=== PATIENT | female | born 1990 | race Caucasian/White ===

== ENCOUNTER 2016-10-18 11:49 | Emergency (ER) | payer BC ==
[2016-10-18] MEDS ORDERED: IBUPROFEN 400 MG TABLET PO ONE (12:10)
[2016-10-18 12:13] LABS: URINE APPEARANCE CLEAR; URINE BILIRUBIN NEGATIVE (NEGATIVE); URINE BLOOD MODERATE (NEGATIVE); URINE COLOR YELLOW; URINE GLUCOSE (UA) NEGATIVE (NEGATIVE); URINE KETONE NEGATIVE (NEGATIVE); URINE LEUKOCYTE ESTERASE NEGATIVE (NEGATIVE); URINE NITRITE NEGATIVE (NEGATIVE); URINE PROTEIN NEGATIVE (NEGATIVE); URINE UROBILINOGEN 0.2 E.U./dL (0.20 - 1.00)
--- NOTE | 2016-10-18 12:16 | Emergency Department Record ---
History of Present Illness - General Chief complaint: Flank Pain Stated complaint: RIGHT FLANK PAIN Time Seen by Provider: 10/18/16 12:05 Source: Patient Mode of Arrival: Ambulatory Limitations: No limitations - History of Present Illness Initial comments: The patient is here due to a 10 day hx of on intermittent R flank pain. The pain is off and on and is sharp at times. She denies any nausea, vomiting, abdominal pain, dysuria or hematuria. The patient has no hx of trauma or kidney stones. She was seen in the and sent over to the ER for hematuria. Presently the patient has no pain or discomfort. The patient has had very mild menstrual spotting recently also. MD Complaint: Other Onset/Timin -: Days(s) Radiation: R flank Severity scale (1-10): 4 Quality: Other Consistency: Intermittent Improves with: Other Worsens with: Movement Patient : No LMP Date: 09/27/16 Gestational Age (wks) based on LMP: 3 - Related Data Sexually active: Yes Home Medications Medication Instructions Recorded Confirmed Last Taken Norethindrone-E.estradiol-Iron 84 Days 10/18/16 10/18/16 [[place] 1-20 Tablet] Previous Rx's Medication Instructions Recorded Naproxen [Naprosyn] 250 mg PO BID #14 tablet 10/18/16 Allergies Allergy/AdvReac Type Severity Reaction Status Date / Time No Known Allergies Allergy PT UNSURE Verified 10/18/16 11:51 OF REACTION Travel Screening - Travel/Exposure Within Last 30 Days Have you traveled within the last 30 days?: No - Travel/Exposure Within Last Year Have you traveled outside the [place] in the last year?: No - Additonal Travel Details Have you been exposed to anyone with a communicable illness?: No - Travel Symptoms Symptom Screening: None Review of Systems Constitutional: Denies: Chills, Fever Eyes: Denies: Eye discharge ENT: Denies: Congestion Respiratory: Denies: Cough, Dyspnea Past Medical History - SOCIAL HISTORY Smoking Status: Never smoker Alcohol Use: Occassional Drug Use Detail:: Marijuana - RESPIRATORY Hx Respiratory Disorders: No - CARDIOVASCULAR Hx Cardio Disorders: No - NEURO Hx Neuro Disorders: No - GI Hx GI Disorders: No - Hx Genitourinary Disorders: No - ENDOCRINE Hx Endocrine Disorders: No - MUSCULOSKELETAL Hx Musculoskeletal Disorders: No - PSYCH Hx Psych Problems: No - HEMATOLOGY/ONCOLOGY Hx Hematology/Oncology Disorders: No Family Medical History Any Significant Family History?: No Physical Exam - General General Appearance: Alert, Oriented x3, Cooperative, No acute distress - Head Head exam: Atraumatic, Normocephalic, Normal inspection - Eye Eye exam: Normal appearance, PERRL - Neck Neck exam: Normal inspection, Full ROM. negative: Tenderness - Respiratory Respiratory exam: Normal lung sounds bilaterally. negative: Respiratory distress - Cardiovascular Cardiovascular Exam: Regular rate, Normal rhythm, Normal heart sounds - GI/Abdominal GI/Abdominal exam: Soft, Normal bowel sounds. negative: Distended, Rebound, Rigid, Tenderness - Extremities Extremities exam: Normal inspection, Full ROM, Normal capillary refill. negative: Tenderness - Back Back exam: Reports: Paraspinal tenderness (There is very reproducible tenderness to palpation over the R inferior paraspinal lumbar area.). Denies: CVA tenderness (R), CVA tenderness (L), Muscle spasm, Vertebral tenderness - Neurological Neurological exam: Alert, Normal gait. negative: Abnormal gait, Motor sensory deficit Course Vital Signs 10/18/16 11:52 Temperature 97.4 F L Pulse Rate 64 Respiratory 16 Rate Blood Pressure 111/83 Pulse Ox 98 - Reevaluation(s) Reevaluation #1: The patient is resting comfortably at this time waiting for her US. She denies any pain and I did apologize for the delay. 10/18/16 14:00 Reevaluation #2: The patient is doing very well. I did discuss again the lab and UA results. The US was normal so I explained that I felt the pain was musculoskeletal in origin. She is to F/U with her PCP next week and possibly have a full pelvic exam done for the spotting. 10/18/16 15:27 Medical Decision Making - Data Complexity MDM Data: Labs Ordered and/or Reviewed, X-Ray Ordered and/or Reviewed - Lab Data Result diagrams: 10/18/16 12:20 10/18/16 12:20 - Radiology Data Radiology results: Report reviewed (US: Normal per Rad.) Disposition Disposition: Discharge Clinical Impression: Acute flank pain Disposition: Home, Self-Care Condition: (1) Good Instructions: Flank Pain (ED) Additional Instructions: Please take the Naprosyn for pain and see your PCP for recheck early next week. Return to the ER for any increased pain, fever, or vomiting. Prescriptions: Naproxen [Naprosyn] 250 mg PO BID #14 tablet Forms: Patient Portal Access Time of Disposition: 15:25
[2016-10-18 12:21] LABS: HCG,QUALITATIVE URINE NEGATIVE (NEGATIVE); URINE BACTERIA FEW; URINE RBC 16 - 25 (NONE SEEN); URINE WBC 0 - 2 (0-2/hpf)
[2016-10-18 12:28] LABS: BASO % 0.6 % (0-6); EOS % 1.5 % (0-6); GRAN % 57.9 % (47-80); HEMATOCRIT 37.9 % (35.0-47.0); HEMOGLOBIN 12.5 gm/dl (11.6-16.0); LYMPH % 34.1 % (16-45); MEAN CELL VOLUME 91.1 fl (81-97); MEAN PLATELET VOLUME 10.3 fl (7.4-10.4); MONO % 5.9 % (0-9); PLATELET COUNT 214 K/uL (130-400); RED BLOOD COUNT 4.16 M/uL (3.80-5.40); RED CELL DISTRIBUTION WIDTH 12.5 % (11.5-14.5); WHITE BLOOD COUNT W/O DIFF 6.5 K/uL (4.2-12.2)
[2016-10-18 12:39] LABS: ANION GAP 9.4 (7-16); BLOOD UREA NITROGEN 10 mg/dL (7-17); CARBON DIOXIDE 25.6 mmol/L (22-30); CREATININE 0.8 mg/dL (0.52-1.04); EST GLOMERULAR FILTRATION RATE > 60 ml/min; GLUCOSE,RANDOM 81 mg/dL (70-110)
--- NOTE | 2016-10-20 14:42 | ULTRASOUND REPORT ---
DATE: 10/18/2016. EXAM: ULTRASOUND OF THE ABDOMEN. HISTORY: RIGHT FLANK PAIN. TECHNIQUE: Complete transabdominal ultrasound was performed. COMPARISON: None. FINDINGS: The liver has a homogenous echotexture without focal lesions. No gallstones or gallbladder wall thickening. The CBD measures 2.0 mm. The visualized portions of the pancreas are unremarkable. The spleen is unremarkable at 10 cm. The right kidney measures 10 x 4.0 cm and the left 11 x 4.0 cm. No renal calculus, mass, or hydronephrosis. The visualized abdominal aorta and inferior vena cava are unremarkable. No free fluid. IMPRESSION: NEGATIVE EXAMINATION. JOB NUMBER: [id number] MTDD
== END 2016-10-18 15:33 | disposition home or self-care (01) ==
LOC: ER 11:49
DX: R10.9 Unspecified abdominal pain (principal)
CPT/HCPCS: 76700; 80048; 81001; 81025; 85025; 99283

== ENCOUNTER 2017-05-04 16:23 | Emergency (ER) | payer BC ==
--- NOTE | 2017-05-04 17:50 | Emergency Department Record ---
History of Present Illness - General Chief Complaint: Numbness Stated Complaint: FACE IS NUMB Time Seen by Provider: 05/04/17 17:18 Source: Patient Mode of Arrival: Ambulatory Limitations: No limitations - History of Present Illness Initial Comments: pt has numbness in the l side of face and some pain in her jaw Onset/Timin -: Days(s) Location: Left face History of same: No Place: Home Severity: Mild Quality: Intermittent, Numb Improves With: None Worsens With: None On Anticoagulants: No Context: Other Associated Symptoms: Denies other symptoms Treatments Prior to Arrival: None - [place] Coma Scale Eye Response: (4) Open spontaneously Motor Response: (6) Obeys commands Verbal Response: (5) Oriented Annamarie Total: 15 - Related Data Home Medications: Home Medications Medication Instructions Recorded Confirmed Last Taken Omeprazole 20 mg PO DAILY 05/04/17 05/04/17 Unknown Previous Rx's Medication Instructions Recorded Hydrocodone/Acetaminophen [[place] 1 each PO QID #7 tablet 05/04/17 5-325 Tablet] Ibuprofen [Motrin 600Mg] 600 mg PO Q6H #20 tablet 05/04/17 Allergies/Adverse Reactions: Allergies Allergy/AdvReac Type Severity Reaction Status Date / Time acetaminophen [From [place]] Allergy ITCHING Verified 05/04/17 16:37 hydrocodone [From [place]] Allergy ITCHING Verified 05/04/17 16:37 No Known Allergies Allergy PT UNSURE Verified 10/18/16 11:51 OF REACTION Travel Screening - Travel/Exposure Within Last 30 Days Have you traveled within the last 30 days?: No Review of Systems Reviewed: No additional complaints except as noted below Constitutional: Reports: As per HPI. Denies: Chills, Fever, Malaise, Night sweats, Weakness, Weight change Eyes: Reports: As per HPI. Denies: Eye discharge, Eye pain, Photophobia, Vision change ENT: Reports: As per HPI. Denies: Congestion, Dental pain, Ear pain, Epistaxis , Hearing loss, Throat pain Respiratory: Reports: As per HPI. Denies: Cough, Dyspnea, Hemoptysis, Stridor, Wheezes Cardiovascular: Reports: As per HPI. Denies: Arrhythmia, Chest pain, Dyspnea on exertion, Edema, Murmurs, Orthopnea, Palpitations, Paroxysmal nocturnal dyspnea, Rheumatic Fever, Syncope Endocrine: Reports: As per HPI. Denies: Fatigue, Heat or cold intolerance, Polydipsia, Polyuria Gastrointestinal: Reports: As per HPI. Denies: Abdominal pain, Constipation, Diarrhea, Hematemesis, Hematochezia, Melena, Nausea, Vomiting Genitourinary: Reports: As per HPI. Denies: Abnormal menses, Discharge, Dyspareunia, Dysuria, Frequency, Hematuria, Incontinence, Retention, Urgency Musculoskeletal: Reports: As per HPI. Denies: Arthralgia, Back pain, Gout, Joint swelling, Myalgia, Neck pain Skin: Reports: As per HPI. Denies: Bruising, Change in color, Change in hair/ nails, Lesions, Pruritus, Rash Neurological: Reports: As per HPI. Denies: Abnormal gait, Confusion, Headache, Numbness, Paresthesias, Seizure, Tingling, Tremors, Vertigo, Weakness Psychiatric: Reports: As per HPI. Denies: Anxiety, Auditory hallucinations, Depression, Homicidal thoughts, Suicidal thoughts, Visual hallucinations Hematological/Lymphatic: Reports: As per HPI. Denies: Anemia, Blood Clots, Easy bleeding, Easy bruising, Swollen glands Past Medical History - SOCIAL HISTORY Smoking Status: Never smoker - RESPIRATORY Hx Respiratory Disorders: No - CARDIOVASCULAR Hx Cardio Disorders: No - NEURO Hx Neuro Disorders: No - GI Hx GI Disorders: No - Hx Genitourinary Disorders: No - ENDOCRINE Hx Endocrine Disorders: No - MUSCULOSKELETAL Hx Musculoskeletal Disorders: No - PSYCH Hx Psych Problems: No - HEMATOLOGY/ONCOLOGY Hx Hematology/Oncology Disorders: No Family Medical History Any Significant Family History?: No Physical Exam - General General Appearance: Alert, Oriented x3, Cooperative, Mild distress - Head Head exam: Normal inspection - Eye Eye exam: Normal appearance, PERRL, EOMI Pupils: Normal accommodation - ENT ENT exam: Normal exam, Mucous membranes moist, Normal external ear exam, Normal orophraynx Ear exam: Normal external inspection. negative: External canal tenderness Nasal Exam: Normal inspection. negative: Discharge, Sinus tenderness Mouth exam: Normal external inspection, Tongue normal Teeth exam: Dental tenderness #, Other (pts last molar on l lower jaw has a horizontal lie and is tender). negative: Dental caries Throat exam: Normal inspection. negative: Tonsillar erythema, Tonsillar exudate - Neck Neck exam: Normal inspection, Full ROM. negative: Tenderness - Respiratory Respiratory exam: Normal lung sounds bilaterally. negative: Respiratory distress - Cardiovascular Cardiovascular Exam: Regular rate, Normal rhythm, Normal heart sounds - GI/Abdominal GI/Abdominal exam: Soft, Normal bowel sounds. negative: Tenderness - Rectal Rectal exam: Deferred - exam: Deferred - Extremities Extremities exam: Normal inspection, Full ROM, Normal capillary refill. negative: Tenderness - Back Back exam: Reports: Normal inspection, Full ROM. Denies: Muscle spasm, Rash noted, Tenderness - Neurological Neurological exam: Alert, CN II-XII intact, Normal gait, Oriented X3, Other ( subjective numbness on l face w no motor deficits) - Psychiatric Psychiatric exam: Normal affect, Normal mood - Skin Skin exam: Dry, Intact, Normal color, Warm Course Vital Signs 05/04/17 16:33 Temperature 98.3 F Pulse Rate 63 Respiratory 13 Rate Blood Pressure 135/86 Pulse Ox 100 - Reevaluation(s) Reevaluation #1: 05/04/17 18:51 ct neg. tooth shows no evidence of infection Disposition Disposition: Discharge Clinical Impression: Impacted third molar tooth Disposition: Home, Self-Care Condition: (1) Good Instructions: Toothache (ED) Additional Instructions: follow up with dentist and oral surgeon on saturday. return sooner if worse Prescriptions: Hydrocodone/Acetaminophen [[place] 5-325 Tablet] 1 each PO QID #7 tablet Ibuprofen [Motrin 600Mg] 600 mg PO Q6H #20 tablet Forms: Patient Portal Access Quality - Quality Measures Quality Measures: N/A - Blood Pressure Screening Does Patient Have Any of the Following: No Blood Pressure Classification: Pre-Hypertensive BP Reading Systolic Measurement: 135 Diastolic Measurement: 86 Screening for High Blood Pressure: < Pre-Hypertensive BP, F/U Documented > [ G8950] Pre-Hypertensive Follow-up Interventions: Follow-up with rescreen every year.
[2017-05-04] MEDS ORDERED: IBUPROFEN 600 MG TABLET PO ONE (18:49)
[2017-05-04] MEDS ORDERED: HYDROCODONE/APAP 5/325MG TABLET PO ONE (18:49)
--- NOTE | 2017-05-04 20:20 | CT SCAN REPORT ---
EXAM: CT SCAN HEAD WO CONTRAST HISTORY: PATIENT HAS LEFT-SIDED NUMBNESS FOR TWO TO THREE DAYS. TECHNIQUE: Serial axial CT scan of the head was performed at 2.5 mm intervals from the base of the skull to the apex without the use of intravenous contrast. Sagittal and coronal reconstructions are provided. No comparison studies are available. FINDINGS: The ventricles, cisterns, and sulci appear within normal limits for size, shape, and attenuation. There is no mass or mass effect. The mcgarry-white differentiation appears within normal limits. There is no intra- or extra-axial fluid collection to suggest bleeding. Bone windows demonstrate no CT evidence of a fracture or dislocation of the skull. Paranasal sinuses are unremarkable. IMPRESSION: NO CT EVIDENCE OF AN ACUTE INTRACRANIAL PROCESS. JOB NUMBER: [id number] MTDD
--- NOTE | 2017-05-04 20:25 | CT SCAN REPORT ---
EXAM: CT SCAN MAXILLOFACIAL WO CONTRAST HISTORY: PATIENT HAS LEFT-SIDED NUMBNESS. TECHNIQUE: Serial axial CT scan of the face was performed at 2.5 mm intervals from the base of the mandible to the level of the frontal horns of the brain. Sagittal and coronal reconstructions are provided. COMPARISON: No comparison CTs are available. FINDINGS: Bone windows demonstrate no CT evidence of a fracture or dislocation of the facial bones. The visualized temporal bones appear unremarkable. Paranasal sinuses are well-pneumatized and well-aerated. There is mild to moderate right nasal septal deviation. Ostiomeatal units are widely patent. The visualized brain parenchyma is unremarkable. Bilateral globes and orbits are unremarkable. The visualized parotid glands, submandibular glands are unremarkable. The visualized cervical spine is unremarkable. IMPRESSION: UNREMARKABLE CT SCAN OF THE FACE. JOB NUMBER: [id number] MTDD
== END 2017-05-04 19:11 | disposition home or self-care (01) ==
LOC: ER 16:23
DX: K01.1 Impacted teeth (principal); R20.0 Anesthesia of skin
CPT/HCPCS: 70450; 70486; 99283

== ENCOUNTER 2017-10-04 16:51 | Emergency (ER) | payer SELFPAY ==
--- NOTE | 2017-10-04 17:06 | Emergency Department Record ---
History of Present Illness - General Chief Complaint: Abdominal Pain Stated Complaint: ABD PAIN AND SORE THROAT, EAR PAIN Time Seen by Provider: 10/04/17 16:59 Source: Patient Mode of Arrival: Ambulatory Limitations: No limitations - History of Present Illness Initial Comments: 26 yo female presents with sore throat, ear pain, pain with swallowing and abdominal pain. The Ear and throat pain started about 3 days ago. She noted the pain is on the left. The ear pain is also on the left. She did notice some swollen lymph nodes. The abdominal pain is upper RUQ to epigastric. It has been coming and going for much longer. No abdominal surgery history. She has had some fevers today. No diarrhea. No blood in stools. No dysuria, no vaginal bleeding, no flank pain, no pain below the umbilicus. MD Complaint: Abdominal pain -: Month(s) Location: Epigastric, RUQ Migration to: Epigastric, Periumbilical, Suprapubic Quality: Aching Consistency: Constant Improves With: Nothing Worsens With: Nothing Context: Other Associated Symptoms: Fever - Related Data Patient : No Home Medications Medication Instructions Recorded Confirmed Last Taken Norgestimate-Ethinyl Estradiol 1 tab PO DAILY 10/04/17 10/04/17 10/04/17 [Adq-Ux-[id number] Tablet] Previous Rx's Medication Instructions Recorded Amoxicillin 500Mg Capsule [Amoxil] 500 mg PO TID #30 tab 10/04/17 Allergies Allergy/AdvReac Type Severity Reaction Status Date / Time acetaminophen [From [place]] Allergy ITCHING Verified 10/04/17 17:02 hydrocodone [From [place]] Allergy ITCHING Verified 10/04/17 17:02 Travel Screening - Travel/Exposure Within Last 30 Days Have you traveled within the last 30 days?: No - Travel/Exposure Within Last Year Have you traveled outside the [place] in the last year?: No - Additonal Travel Details Have you been exposed to anyone with a communicable illness?: No - Travel Symptoms Symptom Screening: None Review of Systems Constitutional: Reports: Fever, Malaise. Denies: Chills Eyes: Denies: Eye discharge ENT: Reports: Ear pain (Left), Throat pain. Denies: Congestion Respiratory: Denies: Cough, Dyspnea, Hemoptysis, Stridor, Wheezes Cardiovascular: Denies: Chest pain Endocrine: Denies: Fatigue, Polydipsia, Polyuria Gastrointestinal: Reports: Abdominal pain, Constipation (At times, comes and goes), Nausea. Denies: Diarrhea, Hematemesis, Hematochezia, Melena, Vomiting Genitourinary: Denies: Dysuria, Urgency Musculoskeletal: Denies: Arthralgia, Back pain, Myalgia Skin: Denies: Bruising, Change in color, Rash Neurological: Denies: Headache, Numbness, Weakness Psychiatric: Denies: Anxiety Hematological/Lymphatic: Denies: Blood Clots, Easy bleeding, Easy bruising, Swollen glands Past Medical History - SOCIAL HISTORY Smoking Status: Never smoker Alcohol Use: Occasional Drug Use: Occasional Drug Use Detail:: Marijuana - RESPIRATORY Hx Respiratory Disorders: No - CARDIOVASCULAR Hx Cardio Disorders: No - NEURO Hx Neuro Disorders: No - GI Hx GI Disorders: No - Hx Genitourinary Disorders: Yes Hx Kidney Stones: Yes - ENDOCRINE Hx Endocrine Disorders: No - MUSCULOSKELETAL Hx Musculoskeletal Disorders: No - PSYCH Hx Psych Problems: No - HEMATOLOGY/ONCOLOGY Hx Hematology/Oncology Disorders: No Family Medical History Any Significant Family History?: No Physical Exam - General General Appearance: Alert, Oriented x3, No acute distress Limitations: No limitations - Head Head exam: Atraumatic, Normal inspection - Eye Eye exam: Normal appearance. negative: Conjunctival injection, Scleral icterus - ENT ENT exam: negative: Normal exam, TM's normal bilaterally (LEft TM with visible fluid, no erythema) Ear exam: Normal external inspection Nasal Exam: Normal inspection Mouth exam: Normal external inspection Throat exam: Tonsillar erythema (Left), Tonsillomegaly. negative: R peritonsillar mass, L peritonsillar mass - Neck Neck exam: Normal inspection, Lymphadenopathy (Mild on the left). negative: Meningismus, Tenderness - Respiratory Respiratory exam: Normal lung sounds bilaterally. negative: Respiratory distress - Cardiovascular Cardiovascular Exam: Regular rate, Normal rhythm, Normal heart sounds Peripheral Pulses: 2+: Radial (R), Radial (L) - GI/Abdominal GI/Abdominal exam: Soft, Tenderness (epigastric). negative: Guarding, Rebound, Rigid - Rectal Rectal exam: Deferred - exam: Deferred - Extremities Extremities exam: Normal inspection, Full ROM, Normal capillary refill. negative: Tenderness - Back Back exam: Reports: Normal inspection, Full ROM. Denies: CVA tenderness (R), CVA tenderness (L), Muscle spasm, Paraspinal tenderness, Rash noted, Tenderness - Neurological Neurological exam: Alert, Normal gait, Oriented X3 - Psychiatric Psychiatric exam: Normal affect, Normal mood - Skin Skin exam: Dry, Intact, Normal color, Warm Course Vital Signs 10/04/17 16:53 Temperature 98.7 F Pulse Rate 79 Respiratory 16 Rate Blood Pressure 138/90 Pulse Ox 98 - Reevaluation(s) Reevaluation #1: 10/04/17 17:30 The strep screen is negative The CBC is negative The CMP is negative The Lipase is negative 10/04/17 17:38 HCG is negative 10/04/17 17:58 The US is negative for any acute process UA pending 10/04/17 18:03 UA demonstrates contamination. She is asymptomatic with urination. Medical Decision Making - Lab Data Result diagrams: 10/04/17 17:05 10/04/17 17:05 Disposition Disposition: Discharge Clinical Impression: Abdominal pain, Tonsillitis Disposition: Home, Self-Care Condition: (1) Good Instructions: Tonsillitis (ED), Abdominal Pain (ED) Additional Instructions: Call your doctor for a follow up review of this ER visit and to review the results Prescriptions: Amoxicillin 500Mg Capsule [Amoxil] 500 mg PO TID #30 tab Forms: Patient Portal Access Time of Disposition: 17:31 Quality - Quality Measures Quality Measures: N/A - Blood Pressure Screening Does Patient Have Any of the Following: No Blood Pressure Classification: Hypertensive Reading Systolic Measurement: 138 Diastolic Measurement: 90 Screening for High Blood Pressure: < Pre-Hypertensive BP, F/U Documented > [ G8950] Pre-Hypertensive Follow-up Interventions: Referral to alternative/primary care provider.
[2017-10-04 17:16] LABS: BASO % 0.3 % (0-6); EOS % 0.7 % (0-6); GRAN % 69.3 % (47-80); HEMATOCRIT 39.4 % (35.0-47.0); HEMOGLOBIN 13.1 gm/dl (11.6-16.0); LYMPH % 25.1 % (16-45); MEAN CELL VOLUME 89.7 fl (81-97); MEAN CORPUSCULAR HEMOGLOBIN 29.8 pg (27-33); MEAN CORPUSCULAR HGB CONC 33.2 g/dl (32-36); MEAN PLATELET VOLUME 10.7 fl (7.4-10.4); MONO % 4.6 % (0-9); PLATELET COUNT 206 K/uL (130-400); RED BLOOD COUNT 4.39 M/uL (3.80-5.40); RED CELL DISTRIBUTION WIDTH 12.5 % (11.5-14.5); WHITE BLOOD COUNT W/O DIFF 10.5 K/uL (4.2-12.2)
[2017-10-04 17:23] LABS: BLOOD UREA NITROGEN 10 mg/dL (6-20); CREATININE 0.8 mg/dL (0.5-0.9); EST GLOMERULAR FILTRATION RATE > 60 mL/min
[2017-10-04 17:24] LABS: TOTAL PROTEIN 7.6 g/dL (6.6-8.7)
[2017-10-04 17:26] LABS: GLUCOSE,RANDOM 79 mg/dL (74-109)
[2017-10-04 17:28] LABS: ALT/SGPT 8 U/L (<33); AST/SGOT 15 U/L (10.0-35.0)
[2017-10-04 17:29] LABS: ALB/GLOB RATIO 1.7 (1.1-1.8); ALBUMIN 4.8 g/dL (4.0-5.0); ALKALINE PHOSPHATASE 42 U/L (35-104); LIPASE 21 U/L (13-60)
[2017-10-04] MEDS ORDERED: DEXAMETHASONE SOD PHOSPHATE 10MG/ML VIAL PO ONE (17:39)
[2017-10-04 17:45] LABS: URINE APPEARANCE CLEAR; URINE BILIRUBIN NEGATIVE (NEGATIVE); URINE BLOOD TRACE-I (NEGATIVE); URINE COLOR YELLOW; URINE GLUCOSE (UA) NEGATIVE (NEGATIVE); URINE KETONE TRACE (NEGATIVE); URINE LEUKOCYTE ESTERASE MODERATE (NEGATIVE); URINE NITRITE NEGATIVE (NEGATIVE); URINE PROTEIN NEGATIVE (NEGATIVE); URINE UROBILINOGEN 0.2 E.U./dL (0.20 - 1.00)
[2017-10-04 18:00] LABS: URINE BACTERIA 2+
--- NOTE | 2017-10-06 22:39 | ULTRASOUND REPORT ---
EXAM: ULTRASOUND ABDOMEN, COMPLETE HISTORY: PAIN. TECHNIQUE: Complete transabdominal ultrasound. COMPARISON: Prior ultrasound from 10/18/16. FINDINGS: The liver is homogeneous in echotexture without focal lesion. No gallstones or gallbladder wall thickening. The CBD measures 1.9 mm. Visualized pancreas is unremarkable. The spleen is unremarkable at 9 cm. The right kidney measures 10 x 4 cm, the left 10 x 4 cm. No renal calculus, mass, or hydronephrosis. The visualized abdominal aorta and inferior vena cava are unremarkable. No free fluid. IMPRESSION: NEGATIVE EXAM. JOB NUMBER: [id number] MTDD
== END 2017-10-04 18:13 | disposition home or self-care (01) ==
LOC: ER 16:51
DX: R10.13 Epigastric pain (principal); R10.11 Right upper quadrant pain; J03.90 Acute tonsillitis, unspecified; R50.81 Fever presenting with conditions classified elsewhere
CPT/HCPCS: 99283; 99284; 83690; 85025; 80053; 81001; 87880; 84703; 76700; J1100

== ENCOUNTER 2018-06-27 17:59 | Emergency (ER) | payer BC ==
--- NOTE | 2018-06-27 18:30 | Emergency Department Record ---
History of Present Illness - General Chief Complaint: Back Pain/Injury Stated Complaint: LOWER BACK PAIN, FACE PAIN Time Seen by Provider: 06/27/18 18:16 Source: Patient Mode of Arrival: Ambulatory Limitations: No limitations - History of Present Illness Initial Comments: 27 yo female presents to ED for evaluation of left sided constant flank pain symptoms for the past 2-3 days, reports similar symptoms several years ago for a right-sided kidney stone. Patient denies fevers, hematuria, nausea, or vomiting symptoms. Patient denies abdominal pain symptoms, denies health problems at her baseline. Patient is unsure if she may be . MD Complaint: Back pain Onset/Timin -: Days(s) Similar Symptoms Previously: Yes Radiation: Flank Severity scale (1-10): 3 Quality: Aching Consistency: Constant Improves With: None Worsens With: None - Related Data Home Medications Medication Instructions Recorded Confirmed Last Taken Folic Acid 1 mg PO DAILY 06/27/18 06/27/18 Unknown Omeprazole 40 mg PO DAILY 06/27/18 06/27/18 Unknown Allergies Allergy/AdvReac Type Severity Reaction Status Date / Time hydrocodone [From [place]] Allergy ITCHING Verified 06/27/18 18:16 Travel Screening - Travel/Exposure Within Last 30 Days Have you traveled within the last 30 days?: No Review of Systems Constitutional: Denies: Chills, Fever, Malaise, Night sweats Eyes: Denies: Eye discharge, Eye pain ENT: Denies: Congestion, Ear pain, Epistaxis Respiratory: Denies: Cough, Dyspnea Cardiovascular: Denies: Chest pain, Dyspnea on exertion Endocrine: Denies: Fatigue, Heat or cold intolerance Gastrointestinal: Denies: Abdominal pain, Nausea, Vomiting Genitourinary: Denies: Incontinence, Retention Musculoskeletal: Reports: Back pain. Denies: Arthralgia Skin: Denies: Bruising, Change in color Neurological: Denies: Abnormal gait, Confusion, Headache, Tingling, Tremors Psychiatric: Denies: Anxiety Hematological/Lymphatic: Denies: Anemia, Blood Clots Past Medical History - SOCIAL HISTORY Smoking Status: Never smoker Alcohol Use: None Drug Use: Heavy - RESPIRATORY Hx Respiratory Disorders: No - CARDIOVASCULAR Hx Cardio Disorders: No - NEURO Hx Neuro Disorders: No - GI Hx GI Disorders: Yes Hx Reflux: Yes Hx Nausea/Vomiting: Yes - Hx Genitourinary Disorders: Yes Hx Kidney Stones: Yes - ENDOCRINE Hx Endocrine Disorders: No - MUSCULOSKELETAL Hx Musculoskeletal Disorders: No - PSYCH Hx Psych Problems: No - HEMATOLOGY/ONCOLOGY Hx Hematology/Oncology Disorders: No Family Medical History Any Significant Family History?: No Physical Exam - General General Appearance: Alert, Oriented x3, Cooperative, Mild distress Limitations: No limitations - Head Head exam: Atraumatic, Normocephalic, Normal inspection Head exam detail: negative: Abrasion, Contusion, Stevens's sign, General tenderness, Hematoma, Laceration - Eye Eye exam: Normal appearance. negative: Conjunctival injection, Periorbital swelling, Periorbital tenderness, Scleral icterus - ENT Ear exam: negative: Auricular hematoma, Auricular trauma Nasal Exam: negative: Active bleeding, Discharge, Dried blood, Foreign body Mouth exam: negative: Drooling, Laceration, Muffled voice, Tongue elevation - Neck Neck exam: Normal inspection. negative: Meningismus, Tenderness - Respiratory Respiratory exam: Normal lung sounds bilaterally. negative: Respiratory distress, Rhonchi, Stridor, Wheezes - Cardiovascular Cardiovascular Exam: Regular rate, Normal rhythm, Normal heart sounds - GI/Abdominal GI/Abdominal exam: Soft. negative: Rebound, Rigid, Tenderness - Rectal Rectal exam: Deferred - exam: Deferred - Extremities Extremities exam: Normal inspection. negative: Pedal edema, Tenderness - Back Back exam: Reports: CVA tenderness (L). Denies: CVA tenderness (R) - Neurological Neurological exam: Alert, Normal gait, Oriented X3 - Psychiatric Psychiatric exam: Normal affect, Normal mood - Skin Skin exam: Normal color. negative: Abrasion Type of lesion: negative: abrasion Course Vital Signs 06/27/18 18:11 Temperature 97.8 F Pulse Rate 61 Respiratory 20 Rate Blood Pressure 133/87 Pulse Ox 95 - Reevaluation(s) Reevaluation #1: 06/27/18 19:11 Laboratory studies were reviewed and are grossly unremarkable for an acute process. UA reviewed: 10-15 RBCs 0-2 WBCs 0-2 Epithelial cells Bacteria: few Reevaluation #2: 06/27/18 19:58 Patient was updated on pending CT imaging read, resting comfortably listening to her headphones on re-evaluation. Reevaluation #3: 06/27/18 20:21 CT Abdomen and Pelvis: Tiny bilateral intra-renal calculi No definite ureteral calculi present No acute process identified in the abdomen or pelvis Patient was updated on all results, appears to be resting comfortably, and appears stable for discharge at this time. Patient's history, physical examination, and ED evaluation are c/w musculoskeletal-related flank pain, recommended symptomatic treatment with ibuprofen and heat as directed. Medical Decision Making - Lab Data Result diagrams: 06/27/18 18:40 06/27/18 18:40 Disposition Disposition: Discharge Clinical Impression: Flank pain, acute Disposition: Home, Self-Care Condition: (2) Stable Instructions: Flank Pain (ED) Additional Instructions: Return to ED if your symptoms worsen or if you have any concerns. Ibuprofen as directed. Follow-up with your family doctor in 3-5 days as directed. Forms: Patient Portal Access Time of Disposition: 20:23 Quality - Quality Measures Quality Measures: N/A - Blood Pressure Screening Does Patient Have Any of the Following: No Blood Pressure Classification: Pre-Hypertensive BP Reading Systolic Measurement: 133 Diastolic Measurement: 87 Screening for High Blood Pressure: < Pre-Hypertensive BP, F/U Documented > [ G8950] Pre-Hypertensive Follow-up Interventions: Referral to alternative/primary care provider.
[2018-06-27 18:43] LABS: BASO % 0.3 % (0-6); EOS % 2.1 % (0-6); GRAN % 53.1 % (47-80); HEMATOCRIT 37.6 % (35.0-47.0); HEMOGLOBIN 12.5 gm/dl (11.6-16.0); LYMPH % 38.9 % (16-45); MEAN CELL VOLUME 91.7 fl (81-97); MEAN CORPUSCULAR HEMOGLOBIN 30.5 pg (27-33); MEAN CORPUSCULAR HGB CONC 33.2 g/dl (32-36); MEAN PLATELET VOLUME 10.6 fl (7.4-10.4); MONO % 5.6 % (0-9); PLATELET COUNT 190 K/uL (130-400); RED CELL DISTRIBUTION WIDTH 12.8 % (11.5-14.5); WHITE BLOOD COUNT W/O DIFF 6.1 K/uL (4.2-12.2)
[2018-06-27 18:52] LABS: BLOOD UREA NITROGEN 10 mg/dL (6-20); CREATININE 0.7 mg/dL (0.5-0.9); EST GLOMERULAR FILTRATION RATE > 60 mL/min; TOTAL PROTEIN 7.2 g/dL (6.6-8.7)
[2018-06-27 18:54] LABS: URINE APPEARANCE CLEAR; URINE BILIRUBIN NEGATIVE (NEGATIVE); URINE BLOOD LARGE (NEGATIVE); URINE COLOR YELLOW; URINE GLUCOSE (UA) NEGATIVE (NEGATIVE); URINE KETONE NEGATIVE (NEGATIVE); URINE LEUKOCYTE ESTERASE NEGATIVE (NEGATIVE); URINE NITRITE NEGATIVE (NEGATIVE); URINE PROTEIN NEGATIVE (NEGATIVE); URINE UROBILINOGEN 0.2 E.U./dL (0.20 - 1.00)
[2018-06-27 18:54] LABS: GLUCOSE,RANDOM 78 mg/dL (74-109)
[2018-06-27 18:57] LABS: ALB/GLOB RATIO 1.9 (1.1-1.8); ALBUMIN 4.7 g/dL (4.0-5.0); ALKALINE PHOSPHATASE 50 U/L (45-87); ALT/SGPT 8 U/L (<33); AST/SGOT 15 U/L (10.0-35.0)
[2018-06-27 19:03] LABS: URINE BACTERIA FEW; URINE EPITHELIAL CELLS 0 - 2 (FEW); URINE WBC 0 - 2 (0-2/hpf)
[2018-06-27 20:39] LABS: HCG,QUALITATIVE URINE NEGATIVE (NEGATIVE)
--- NOTE | 2018-06-29 11:06 | CT SCAN REPORT ---
EXAM: CT SCAN ABDOMEN/PELVIS WO CONTRAST HISTORY: FLANK PAIN ON THE LEFT, INTERMITTENTLY FOR THE PAST TWO YEARS. TECHNIQUE: Axial CT scan of the abdomen and pelvis performed without oral or IV contrast. COMPARISON: No prior CT with which to compare. FINDINGS: No calcified gallstones are seen within the gallbladder. There are multiple small calcifications within the right kidney. There are probably a few very tiny calcifications in the left kidney as well, consistent with bilateral currently nonobstructing intrarenal calculi. No appreciable hydronephrosis or hydroureter is seen on either side. As such, it is very difficult to follow the entire course of both ureters in their nondilated state throughout the retroperitoneum and pelvis, but no definite ureteral calculus seen on either side and no bladder calculus evident. Evaluation of the bowel and viscera is extremely limited without oral or IV contrast. Given this limitation, no definite hepatic, splenic, adrenal, pancreatic, or renal mass identified. Appendix somewhat poorly seen without contrast but no definite appendicitis identified. Lung bases appear clear. Heart size is normal. No free intraperitoneal air or free intraperitoneal fluid identified. IMPRESSION: 1. BILATERAL TINY CURRENTLY NONOBSTRUCTING INTRARENAL CALCULI. NO DEFINITE HYDRONEPHROSIS OR URETERAL CALCULUS SEEN ON EITHER SIDE. 2. THE REMAINDER OF THE NONCONTRAST CT OF THE ABDOMEN AND PELVIS APPEARS ESSENTIALLY NEGATIVE, DESCRIBED ABOVE. JOB NUMBER: [id number] [facility]
== END 2018-06-27 20:44 | disposition home or self-care (01) ==
LOC: ER 17:59
DX: M54.5 Low back pain (principal); R10.32 Left lower quadrant pain; R20.0 Anesthesia of skin; Z87.442 Personal history of urinary calculi
CPT/HCPCS: 74176; 80053; 81001; 81025; 85025; 99283; 99284

== ENCOUNTER 2019-01-24 10:21 | Emergency (ER) | payer SELFPAY ==
--- NOTE | 2019-01-24 10:32 | Emergency Department Record ---
History of Present Illness - General Chief Complaint: Back Pain/Injury Stated Complaint: LOWER BACK PAIN, VOMITTING Time Seen by Provider: 01/24/19 10:29 Source: Patient Mode of Arrival: Ambulatory Limitations: No limitations - History of Present Illness Initial Comments: 28 yo female presents with right flank pain. The onset was mild initially upon waking at 8:30am. The pain is sharp. It is now worse and fairly constant. She did have one episode of vomiting that has resolved. No fever. The pain does not radiate at this time. She has had renal stones in the past. No illness yesterday or prior to bed last night. She has slight pressure to urinate. No PCP. MD Complaint: Back pain -: Hour(s) (2.5) Place: Home Radiation: None Severity: Moderate Quality: Aching, Sharp, Stabbing Consistency: Constant Improves With: None Worsens With: None Context: Other (No injury) Associated Symptoms: Other - Related Data Previous Rx's Medication Instructions Recorded Hydrocodone/Acetaminophen [[place] 1 each PO Q6H #10 tablet 01/24/19 5-325 Tablet] Ondansetron [Zofran Odt] 4 mg PO Q8H #15 tab.rapdis 01/24/19 Allergies Allergy/AdvReac Type Severity Reaction Status Date / Time hydrocodone [From [place]] Allergy ITCHING Verified 06/27/18 18:16 Review of Systems Constitutional: Denies: Chills, Fever, Malaise, Weakness Eyes: Denies: Eye discharge, Vision change ENT: Denies: Congestion, Throat pain Respiratory: Denies: Cough, Dyspnea Cardiovascular: Denies: Chest pain, Palpitations, Syncope Endocrine: Denies: Fatigue, Polydipsia, Polyuria Gastrointestinal: Reports: Nausea, Vomiting. Denies: Abdominal pain, Diarrhea, Hematemesis, Hematochezia Genitourinary: Denies: Frequency, Hematuria, Incontinence, Retention, Urgency Musculoskeletal: Reports: As per HPI, Back pain (right flank). Denies: Arthralgia Skin: Denies: Bruising, Change in color, Rash Neurological: Denies: Headache Psychiatric: Denies: Anxiety Hematological/Lymphatic: Denies: Easy bleeding, Easy bruising Past Medical History - SOCIAL HISTORY Smoking Status: Never smoker Drug Use: Heavy - RESPIRATORY Hx Respiratory Disorders: No - CARDIOVASCULAR Hx Cardio Disorders: No - NEURO Hx Neuro Disorders: No - GI Hx GI Disorders: Yes Hx Reflux: Yes Hx Nausea/Vomiting: Yes - Hx Genitourinary Disorders: Yes Hx Kidney Stones: Yes - ENDOCRINE Hx Endocrine Disorders: No - MUSCULOSKELETAL Hx Musculoskeletal Disorders: No - PSYCH Hx Psych Problems: No - HEMATOLOGY/ONCOLOGY Hx Hematology/Oncology Disorders: No Physical Exam - General General Appearance: Alert, Oriented x3, Cooperative, No acute distress Limitations: No limitations - Head Head exam: Atraumatic, Normal inspection - Eye Eye exam: Normal appearance, PERRL. negative: Conjunctival injection, Scleral icterus - ENT ENT exam: Normal exam Ear exam: Normal external inspection Nasal Exam: Normal inspection Mouth exam: Normal external inspection - Neck Neck exam: Normal inspection - Respiratory Respiratory exam: Normal lung sounds bilaterally. negative: Respiratory distress - Cardiovascular Cardiovascular Exam: Regular rate, Normal rhythm, Normal heart sounds - GI/Abdominal GI/Abdominal exam: Soft, Normal bowel sounds. negative: Distended, Guarding, Re bound, Rigid, Tenderness - Rectal Rectal exam: Deferred - exam: Deferred - Extremities Extremities exam: Normal inspection. negative: Pedal edema, Tenderness - Back Back exam: Reports: CVA tenderness (R), Full ROM. Denies: CVA tenderness (L), Tenderness - Neurological Neurological exam: Alert, Oriented X3 - Psychiatric Psychiatric exam: Normal affect, Normal mood. negative: Agitated, Anxious - Skin Skin exam: Dry, Intact, Normal color, Warm Course - Reevaluation(s) Reevaluation #1: 01/24/19 10:50 Vitals reviewed No acute abnormalities EMR reviewed. CT in June 2018. Bilateral small stones. 01/24/19 11:34 No acute changes on the CBC or BMP Awaiting UA Her pain is significantly improved at this time 01/24/19 12:16 The UA was obtained and sent to the lab RBC's noted otherwise negative. No infection HCG is negative. The results were discussed with the patient. The pain is starting to come back. I discussed CT option but the CT in June demonstrated small stones. I do not think the risk of radiation exposure meets the benefit given no fever, normal CBC, no infection in the urine. She agrees with a presumed diagnosis of renal colic and a plan of pain control only at this time. 01/24/19 13:14 The patient was rechecked. She is improved but still has some pain. I offered further monitoring in the ED, CT, vs DC home. Given the findings and symptoms are still most consistent with uncomplicated renal colic she does not want a CT at this time. She is comfortable treating the pain at home. We discussed reasons for immediate return or to be seen again (fever, vomiting, uncontrolled pain). She states she can take [place]. She get mild itch but no rash. She has tolerated it OK in the past. Medical Decision Making - Lab Data Result diagrams: 01/24/19 10:50 01/24/19 10:50 Disposition Disposition: Discharge Clinical Impression: Flank pain Disposition: Home, Self-Care Condition: (1) Good Instructions: Renal Colic (ED) Additional Instructions: Call your doctor for the next available follow up appointment Review this ER visit and the tests performed with your family doctor Return to the ER for a recheck if worse, any new concerns or questions Strain your urine to look for signs of a renal stone when you urinate. Take the prescriptions provided as directed Prescriptions: Hydrocodone/Acetaminophen [[place] 5-325 Tablet] 1 each PO Q6H #10 tablet Ondansetron [Zofran Odt] 4 mg PO Q8H #15 tab.rapdis Forms: Patient Portal Access Time of Disposition: 13:16 Quality - Quality Measures Quality Measures: N/A - Blood Pressure Screening Does Patient Have Any of the Following: No Blood Pressure Classification: Pre-Hypertensive BP Reading Systolic Measurement: 122 Diastolic Measurement: 81 Screening for High Blood Pressure: < Pre-Hypertensive BP, F/U Documented > [G8950] Pre-Hypertensive Follow-up Interventions: Referral to alternative/primary care provider.
[2019-01-24] MEDS ORDERED: 0.9 % SODIUM CHLORIDE 1,000 ML BAG IV ONE (10:41)
[2019-01-24] MEDS ORDERED: KETOROLAC 30 MG/ML VIAL IVP ONE ×2 (10:41→12:22)
[2019-01-24 10:56] LABS: ABSOLUTE NEUTROPHIL COUNT 4.71; BASO % 0.6 % (0-6); EOS % 2.3 % (0-6); GRAN % 66.5 % (47-80); HEMATOCRIT 40.1 % (35.0-47.0); HEMOGLOBIN 12.7 gm/dl (11.6-16.0); LYMPH % 25.8 % (16-45); MEAN CELL VOLUME 94.8 fl (81-97); MEAN CORPUSCULAR HGB CONC 31.7 g/dl (32-36); MEAN PLATELET VOLUME 9.9 fl (7.4-10.4); MONO % 4.8 % (0-9); PLATELET COUNT 256 K/uL (130-400); RED BLOOD COUNT 4.23 M/uL (3.80-5.40); RED CELL DISTRIBUTION WIDTH 13.2 % (11.5-14.5); WHITE BLOOD COUNT W/O DIFF 7.1 K/uL (4.2-12.2)
[2019-01-24 11:09] LABS: BLOOD UREA NITROGEN 14 mg/dL (6-20); CREATININE 0.8 mg/dL (0.5-0.9); EST GLOMERULAR FILTRATION RATE > 60 mL/min
[2019-01-24 11:12] LABS: GLUCOSE,RANDOM 93 mg/dL (74-109)
[2019-01-24] MEDS ORDERED: ACETAMINOPHEN 500 MG TABLET PO ONE (11:36)
[2019-01-24 12:04] LABS: URINE APPEARANCE CLEAR; URINE BILIRUBIN NEGATIVE (NEGATIVE); URINE BLOOD LARGE (NEGATIVE); URINE COLOR YELLOW; URINE GLUCOSE (UA) NEGATIVE (NEGATIVE); URINE KETONE NEGATIVE (NEGATIVE); URINE LEUKOCYTE ESTERASE NEGATIVE (NEGATIVE); URINE NITRITE NEGATIVE (NEGATIVE); URINE PROTEIN NEGATIVE (NEGATIVE); URINE UROBILINOGEN 0.2 E.U./dL (0.20 - 1.00)
[2019-01-24 12:09] LABS: URINE WBC NONE SEEN (0-2/hpf)
[2019-01-24 12:13] LABS: HCG,QUALITATIVE URINE NEGATIVE (NEGATIVE)
[2019-01-24] MEDS ORDERED: MORPHINE SULFATE 5 MG/ML VIAL IVP ONE (12:22)
[2019-01-24] MEDS ORDERED: ONDANSETRON HCL IV 4 MG/2 ML VIAL IVP ONE (12:22)
[2019-01-24] MEDS ORDERED: HYDROCODONE/APAP 5/325MG TABLET PO ONE (13:14)
[2019-01-24] MEDS ORDERED: ONDANSETRON 4 MG ODT TABLET SL ONE (13:14)
== END 2019-01-24 13:53 | disposition home or self-care (01) ==
LOC: ER 10:21
DX: N23 Unspecified renal colic (principal); M54.5 Low back pain; R11.10 Vomiting, unspecified; Z87.442 Personal history of urinary calculi
CPT/HCPCS: 99284 ×2; 96376; 96374; 96375; 96361; 85025; 80048; 81001; 81025; J1885; J2405; J7030

== ENCOUNTER 2019-01-25 20:08 | Emergency (ER) | payer SELFPAY ==
[2019-01-25] MEDS ORDERED: KETOROLAC 30 MG/ML VIAL IVP ONE (20:26)
[2019-01-25] MEDS ORDERED: ONDANSETRON HCL IV 4 MG/2 ML VIAL IVP ONE (20:26)
[2019-01-25] MEDS ORDERED: 0.9 % SODIUM CHLORIDE 1000ML 1,000 ML IV SCH (20:30)
--- NOTE | 2019-01-25 20:30 | Emergency Department Record ---
History of Present Illness - General Chief Complaint: Abdominal Pain Stated Complaint: VOMITTING Time Seen by Provider: 01/25/19 20:14 Source: Patient Mode of Arrival: Ambulatory Limitations: No limitations - History of Present Illness Initial Comments: 28 yo female presents to ED for evaluation of worsening right sided abdominal/flank pain symptoms for the past 2 days. Patient was seen yesterday for less severe symptoms, diagnosed with renal colic. Patient reports worsening pain and vomiting following discharge yesterday, reports history of kidney stones previously. Patient denies previous abdominal surgeries. MD Complaint: Abdominal pain, Flank pain Onset/Timin -: Days(s) Location: R Flank Radiation: RUQ, RLQ Severity: Severe Quality: Sharp, Stabbing Consistency: Constant Improves With: Nothing Worsens With: Nothing Associated Symptoms: Nausea, Vomiting - Related Data Patient : No Previous Rx's Medication Instructions Recorded Hydrocodone/Acetaminophen [[place] 1 each PO Q6H #10 tablet 01/24/19 5-325 Tablet] Ondansetron [Zofran Odt] 4 mg PO Q8H #15 tab.rapdis 01/24/19 Tamsulosin HCl [Flomax] 0.4 mg PO DAILY #15 cap.er.24h 01/25/19 Allergies Allergy/AdvReac Type Severity Reaction Status Date / Time hydrocodone [From [place]] Allergy ITCHING Verified 06/27/18 18:16 Review of Systems Constitutional: Denies: Chills, Fever, Malaise, Night sweats Eyes: Denies: Eye discharge, Eye pain ENT: Denies: Congestion, Ear pain, Epistaxis Respiratory: Denies: Cough, Dyspnea Cardiovascular: Denies: Chest pain, Dyspnea on exertion Endocrine: Denies: Fatigue, Heat or cold intolerance Gastrointestinal: Reports: Abdominal pain, Nausea, Vomiting. Denies: Constipation Genitourinary: Denies: Incontinence, Retention Musculoskeletal: Reports: Back pain. Denies: Arthralgia, Gout, Joint swelling Skin: Denies: Bruising, Change in color Neurological: Denies: Abnormal gait, Confusion, Headache, Seizure Psychiatric: Denies: Anxiety Hematological/Lymphatic: Denies: Anemia, Blood Clots Past Medical History - SOCIAL HISTORY Smoking Status: Never smoker Drug Use: Heavy - RESPIRATORY Hx Respiratory Disorders: No - CARDIOVASCULAR Hx Cardio Disorders: No - NEURO Hx Neuro Disorders: No - GI Hx GI Disorders: Yes Hx Reflux: Yes Hx Nausea/Vomiting: Yes - Hx Genitourinary Disorders: Yes Hx Kidney Stones: Yes - ENDOCRINE Hx Endocrine Disorders: No - MUSCULOSKELETAL Hx Musculoskeletal Disorders: No - PSYCH Hx Psych Problems: No - HEMATOLOGY/ONCOLOGY Hx Hematology/Oncology Disorders: No Physical Exam - General General Appearance: Alert, Oriented x3, Cooperative, Moderate distress (Appears uncomfortable on examination due to her pain symptoms.) Limitations: No limitations - Head Head exam: Atraumatic, Normocephalic, Normal inspection Head exam detail: negative: Abrasion, Contusion, Stevens's sign, General tenderness, Hematoma, Laceration - Eye Eye exam: Normal appearance. negative: Conjunctival injection, Periorbital swelling, Periorbital tenderness, Scleral icterus - ENT Ear exam: negative: Auricular hematoma, Auricular trauma Nasal Exam: negative: Active bleeding, Discharge, Dried blood, Foreign body Mouth exam: negative: Drooling, Laceration, Muffled voice, Tongue elevation - Neck Neck exam: Normal inspection. negative: Meningismus, Tenderness - Respiratory Respiratory exam: Normal lung sounds bilaterally. negative: Rales, Respiratory distress, Rhonchi, Stridor - Cardiovascular Cardiovascular Exam: Regular rate, Normal rhythm, Normal heart sounds - GI/Abdominal GI/Abdominal exam: Soft, Tenderness (TTP RUQ, RLQ on examination, no rebound/guarding symptoms present on examination.). negative: Rebound, Rigid - Rectal Rectal exam: Deferred - exam: Deferred - Extremities Extremities exam: Normal inspection. negative: Pedal edema, Tenderness - Back Back exam: Reports: CVA tenderness (R). Denies: CVA tenderness (L) - Neurological Neurological exam: Alert, Normal gait, Oriented X3 - Psychiatric Psychiatric exam: Normal affect, Normal mood - Skin Skin exam: Normal color. negative: Abrasion Type of lesion: negative: abrasion Course Vital Signs 01/25/19 20:16 Temperature 97.3 F L Pulse Rate [ 70 Pulse Ox Probe] Respiratory 20 Rate Blood Pressure 145/105 [Left Arm] Pulse Ox 99 - Reevaluation(s) Reevaluation #1: 01/25/19 21:21 Laboratory studies were reviewed and appear grossly unremarkable for an acute process except for the following: WBC 13.5 85% Neutrophils Patient was reassessed, reports significant improvement in her pain symptoms. UA pending at this time. Reevaluation #2: 01/25/19 22:06 UA was reviewed and appears negative for infection: 0-2 WBCs 3-6 RBCs 7-10 Epithelial cells No bacteria CT interpretation is pending. Patient reports that her pain symptoms have not worsened following improvement with Toradol. Reevaluation #3: 01/25/19 22:40 CT Abdomen and pelvis: 3-4 mm obstructing calculus right UVJ with mild-moderate hydrophrosis present. Patient was updated on all results, reports that her pain symptoms continue to be improved. Will discharge home on Flomax with instructions to follow-up with her urologist (Dr. Mendenhall) in 1-3 days as directed. Patient appears stable for discharge at this time. Medical Decision Making - Lab Data Result diagrams: 01/25/19 20:30 01/25/19 20:30 Disposition Disposition: Discharge Clinical Impression: Ureteral calculi Disposition: Home, Self-Care Condition: (2) Stable Instructions: Kidney Stones (ED) Additional Instructions: Return to ED if your symptoms worsen or if you have any concerns. Continue [place], Zofran as previously prescribed. Flomax as directed. Call Dr. Mendenhall for follow-up appointment in 1-3 days as directed. Prescriptions: Tamsulosin HCl [Flomax] 0.4 mg PO DAILY #15 cap.er.24h Referrals: KIRAN MENDENHALL [MEDICAL DOCTOR] - Forms: Patient Portal Access Time of Disposition: 22:42 Quality - Quality Measures Quality Measures: N/A - Blood Pressure Screening Does Patient Have Any of the Following: No Blood Pressure Classification: Hypertensive Reading Systolic Measurement: 145 Diastolic Measurement: 105 Screening for High Blood Pressure: < First Hypertensive BP, F/U Documented > [G8950] First Hypertensive Follow-up Interventions: Referral to alternative/primary care provider.
[2019-01-25 20:38] LABS: HEMATOCRIT 37.5 % (35.0-47.0); HEMOGLOBIN 12.5 gm/dl (11.6-16.0); MEAN CELL VOLUME 92.8 fl (81-97); MEAN CORPUSCULAR HEMOGLOBIN 30.9 pg (27-33); MEAN CORPUSCULAR HGB CONC 33.3 g/dl (32-36); MEAN PLATELET VOLUME 10.2 fl (7.4-10.4); PLATELET COUNT 221 K/uL (130-400); RED BLOOD COUNT 4.04 M/uL (3.80-5.40); RED CELL DISTRIBUTION WIDTH 13.2 % (11.5-14.5); WHITE BLOOD COUNT W/O DIFF 13.3 K/uL (4.2-12.2)
[2019-01-25 20:53] LABS: CREATININE 1.3 mg/dL (0.5-0.9); TOTAL PROTEIN 6.6 g/dL (6.6-8.7)
[2019-01-25 20:58] LABS: ALB/GLOB RATIO 2.3 (1.1-1.8); ALBUMIN 4.6 g/dL (4.0-5.0)
[2019-01-25 21:53] LABS: URINE APPEARANCE CLEAR; URINE BILIRUBIN NEGATIVE (NEGATIVE); URINE BLOOD LARGE (NEGATIVE); URINE COLOR YELLOW; URINE GLUCOSE (UA) NEGATIVE (NEGATIVE); URINE KETONE 40 mg/dL (NEGATIVE); URINE LEUKOCYTE ESTERASE NEGATIVE (NEGATIVE); URINE NITRITE NEGATIVE (NEGATIVE); URINE PROTEIN NEGATIVE (NEGATIVE); URINE UROBILINOGEN 0.2 E.U./dL (0.20 - 1.00)
[2019-01-25 22:01] LABS: URINE WBC 0 - 2 (0-2/hpf)
[2019-01-25] MEDS ORDERED: TAMSULOSIN HCL 0.4 MG CAP.ER.24H PO ONE (22:39)
--- NOTE | 2019-01-26 18:23 | CT SCAN REPORT ---
EXAM: CT SCAN ABDOMEN/PELVIS WO CONTRAST HISTORY: RIGHT-SIDED FLANK AND ABDOMINAL PAIN FOR TWO DAYS. TECHNIQUE: Axial CT scan of the abdomen and pelvis obtained without oral or IV contrast at the referring physician's request. COMPARISON: CT abdomen and pelvis 06/27/18. FINDINGS: No calcified gallstones are seen within the gallbladder. There is questionably some edema of the gallbladder wall, however, and clinical correlation is suggested. Follow-up gallbladder ultrasound may be useful. Tiny intrarenal calculi bilaterally again noted, also present previously. However, there does appear to be some mild hydronephrosis on the right, new from the prior study. Right ureter also appears mildly dilated and appears to extend down to a small calcification on image #92 of 116 measuring approximately 3.5 mm in size consistent with a distal right ureteral calculus at the right UVJ causing a component of obstruction. This calcification was not seen in this location on the prior ultrasound as well consistent with a current new distal ureteral calculus. There is no appreciable hydronephrosis or hydroureter on the left and the left ureter is extremely difficult to follow in its course throughout the retroperitoneum and pelvis but no obvious left ureteral calculus seen and no actual bladder calculus evident. Evaluation of the bowel and viscera extremely limited without oral or IV contrast. Given this limitation, no definite hepatic, splenic, adrenal, pancreatic, or renal mass identified. I believe a small amount of the appendix is identified as a normal-caliber structure with no definite appendicitis seen. There is some free fluid in the pelvis, which is nonspecific although may simply be physiologic in nature. Lung bases appear clear. No definite free intraperitoneal air identified. IMPRESSION: 1. APPEARANCE CONSISTENT WITH A DISTAL RIGHT URETERAL CALCULUS ABOUT 3.5 MM IN SIZE CAUSING A COMPONENT OF OBSTRUCTION ON THE RIGHT. 2. ADDITIONAL BILATERAL CURRENTLY NONOBSTRUCTING INTRARENAL CALCULI. 3. QUESTION OF SOME EDEMA IN THE GALLBLADDER WALL. NO OBVIOUS CALCIFIED GALLSTONES ARE SEEN. IF CLINICALLY WARRANTED, FOLLOW-UP GALLBLADDER ULTRASOUND WOULD BE SUGGESTED. 4. SOME FREE FLUID IN THE PELVIS IS NONSPECIFIC AND MAY JUST BE PHYSIOLOGIC IN NATURE. NO FREE AIR EVIDENT. [facility] [id number] [facility]
== END 2019-01-25 22:57 | disposition home or self-care (01) ==
LOC: ER 20:08
DX: N13.2 Hydronephrosis with renal and ureteral calculous obstruction (principal); R11.2 Nausea with vomiting, unspecified; Z87.442 Personal history of urinary calculi
CPT/HCPCS: 99284 ×2; 96374; 96375; 83690; 80053; 81001; 85027; 74176; J1885; J2405; J7030

== ENCOUNTER 2019-01-27 12:10 | Emergency (ER) | payer SELFPAY ==
[2019-01-27] MEDS ORDERED: KETOROLAC 30 MG/ML VIAL IVP ONE (12:22)
[2019-01-27] MEDS ORDERED: PROMETHAZINE HCL 25 MG in 0.9 % SODIUM CHLORIDE 100ML 100 ML IVPB ONE (12:22)
[2019-01-27] MEDS ORDERED: 0.9 % SODIUM CHLORIDE 1000ML 1,000 ML IV ONE (12:23)
--- NOTE | 2019-01-27 12:24 | Emergency Department Record ---
History of Present Illness - General Chief complaint: Flank Pain Stated complaint: KIDNEY STONES/PAIN Time Seen by Provider: 01/27/19 12:19 Source: Patient Mode of Arrival: Ambulatory Limitations: No limitations - History of Present Illness Initial comments: Pt to ED from home brought by neighbor for increased pain for kidney stone diagnosed here [address]. Pt has a 3.5mm stone distal at the UVJ per CT report with mild hydronephrosis. Pt was "OK" yesterday and took only one [place]. This AM work with increased pain to the right flank into right groin and feeling very nauseated. Unable to take pain meds due to nausea. No NSAID meds at home. Pt on knees trying to vomit in trash can on first contact. - Related Data Previous Rx's Medication Instructions Recorded Hydrocodone/Acetaminophen [[place] 1 each PO Q6H #10 tablet 01/24/19 5-325 Tablet] Ondansetron [Zofran Odt] 4 mg PO Q8H #15 tab.rapdis 01/24/19 Tamsulosin HCl [Flomax] 0.4 mg PO DAILY #15 cap.er.24h 01/25/19 Ibuprofen [Motrin 600Mg] 600 mg PO Q6H 6 Days #40 tablet 01/27/19 Sulfamethoxazole/Trimethoprim 1 tab PO BID 7 Days #14 tab 01/27/19 [Bactrim Ds] Allergies Allergy/AdvReac Type Severity Reaction Status Date / Time hydrocodone [From [place]] Allergy ITCHING Verified 01/27/19 12:29 Review of Systems Constitutional: Denies: Chills, Fever, Weakness Eyes: Denies: Eye discharge, Photophobia ENT: Denies: Congestion Respiratory: Denies: Cough, Dyspnea Cardiovascular: Denies: Chest pain, Palpitations, Syncope Endocrine: Denies: Fatigue Gastrointestinal: Reports: As per HPI, Constipation, Nausea, Vomiting Genitourinary: Denies: Dysuria Musculoskeletal: Reports: As per HPI, Back pain Skin: Denies: Rash Neurological: Denies: Headache, Tingling, Tremors Psychiatric: Denies: Anxiety Hematological/Lymphatic: Denies: Anemia Past Medical History - SOCIAL HISTORY Smoking Status: Never smoker Drug Use: Heavy - RESPIRATORY Hx Respiratory Disorders: No - CARDIOVASCULAR Hx Cardio Disorders: No - NEURO Hx Neuro Disorders: No - GI Hx GI Disorders: Yes Hx Reflux: Yes Hx Nausea/Vomiting: Yes - Hx Genitourinary Disorders: Yes Hx Kidney Stones: Yes - ENDOCRINE Hx Endocrine Disorders: No - MUSCULOSKELETAL Hx Musculoskeletal Disorders: No - PSYCH Hx Psych Problems: No - HEMATOLOGY/ONCOLOGY Hx Hematology/Oncology Disorders: No Physical Exam - General General Appearance: Alert, Oriented x3, Cooperative, Moderate distress - Head Head exam: Atraumatic - Eye Eye exam: Normal appearance, PERRL - ENT ENT exam: Mucous membranes moist Nasal Exam: Normal inspection Throat exam: Normal inspection - Neck Neck exam: Normal inspection, Full ROM. negative: Lymphadenopathy, Tenderness - Respiratory Respiratory exam: Normal lung sounds bilaterally. negative: Respiratory distress, Rhonchi, Wheezes - Cardiovascular Cardiovascular Exam: Regular rate, Normal rhythm. negative: Tachycardia Peripheral Pulses: 2+: Radial (R), Radial (L) - GI/Abdominal GI/Abdominal exam: Soft, Normal bowel sounds, Tenderness. negative: Diminished bowel sounds, Distended, Guarding, Rebound, Rigid - Extremities Extremities exam: Normal inspection, Full ROM. negative: Pedal edema - Back Back exam: Reports: CVA tenderness (R). Denies: Paraspinal tenderness, Vertebral tenderness - Neurological Neurological exam: Alert, Normal gait, Oriented X3 - Psychiatric Psychiatric exam: Anxious, Normal affect, Normal mood - Skin Skin exam: Normal color, Rash Course - Reevaluation(s) Reevaluation #1: 01/27/19 13:[address] with Tordaol and phenrgan given. Recheck shortly after with pt resting quiet on cart, "I am way better". Pain minimal and no nausea. Will get US to check hydro and a KUB Xray for constipation. Pt states no BM in 4 days and she feels pressure to go. Reevaluation #2: 01/27/19 14:57 Pt with pain relief. Discussed plan for home Disposition Disposition: Discharge Clinical Impression: Renal calculus, right, Constipation Disposition: Home, Self-Care Condition: (1) Good Instructions: Constipation (ED), Kidney Stones (ED) Additional Instructions: Use Fleets enema at home Meds as instructed. Family doc in 2 days Return as needed. Prescriptions: Sulfamethoxazole/Trimethoprim [Bactrim Ds] 1 tab PO BID 7 Days #14 tab Ibuprofen [Motrin 600Mg] 600 mg PO Q6H 6 Days #40 tablet Forms: Patient Portal Access Time of Disposition: 15:00 Quality - Quality Measures Quality Measures: N/A - Blood Pressure Screening Does Patient Have Any of the Following: No Blood Pressure Classification: Hypertensive Reading Systolic Measurement: 146 Diastolic Measurement: 98 Screening for High Blood Pressure: < Pre-Hypertensive BP, F/U Documented > [G8950] Pre-Hypertensive Follow-up Interventions: Follow-up with rescreen every year.
--- NOTE | 2019-01-28 20:23 | RADIOLOGY REPORT ---
EXAM: ABDOMEN 1 VIEW HISTORY: PATIENT HAS CONSTIPATION AND RIGHT RENAL STONE. TECHNIQUE: A single KUB is provided along with a comparison CT scan of the abdomen and pelvis dated 01/25/2019. FINDINGS: The bowel gas pattern is nonspecific, nonobstructive. There are two small renal calculi identified within the right upper quadrant of the abdomen. The left-sided renal calculi that were noted on the previous examination are not visualized on the current examination due to overlying bowel gas. There is a 3.9 mm and 3.7 mm calcified density identified within the right hemipelvis, which I suspect likely represents the right ureteral calculus. This is noted on the previous CT scan as well. Moderate stool burden is noted throughout the large bowel suggesting constipation. Clinical correlation is recommended. IMPRESSION: 1. CALCULI ARE NOTED AT THE SUPERIOR POLE OF THE RIGHT KIDNEY, DISCUSSED ABOVE. 2. CALCIFIED DENSITIES ARE IDENTIFIED WITHIN THE RIGHT HEMIPELVIS, WHICH ARE SUSPECTED TO BE PARTIALLY OBSTRUCTING URETERAL CALCULI, NOTED ON THE PRIOR CT SCAN DONE TWO DAYS AGO. JOB NUMBER: [id number] [facility]
--- NOTE | 2019-01-28 20:29 | ULTRASOUND REPORT ---
EXAM: ULTRASOUND RENAL HISTORY: PATIENT HAS A HISTORY OF KIDNEY STONES. TECHNIQUE: Real-time mcgarry scale ultrasound examination of the bilateral kidneys is provided. Comparison CT scan of the abdomen and pelvis dated 01/25/2019 is provided. FINDINGS: The right kidney measures 12.16 cm x 5.5 cm x 6.38 cm. The left kidney measures 11.44 cm x 5.53 cm x 4.83 cm. The right kidney demonstrates mild right-sided hydronephrosis and proximal hydroureter. A similar finding was noted on the previous CT scan as well. The previously visualized calculi within the bilateral kidneys are not clearly identified on the current examination. Ultrasound examination of the urinary bladder demonstrates a left-sided ureteral jet. No right-sided ureteral jet is noted. The contour, size, and echotexture of the kidneys are within normal limits. IMPRESSION: 1. MILD RIGHT-SIDED HYDRONEPHROSIS IS NOTED WITHOUT SONOGRAPHIC EVIDENCE OF RIGHT URETERAL JET IN THE URINARY BLADDER. THESE FINDINGS SUGGEST MILD PERSISTENT OBSTRUCTION FROM THE PREVIOUSLY IDENTIFIED RIGHT URETEROVESICAL JUNCTION CALCULUS. 2. THE PREVIOUSLY IDENTIFIED RENAL CALCULI ARE NOT CLEARLY IDENTIFIED ON THE CURRENT EXAMINATION. NO OBVIOUS HYDRONEPHROSIS OF THE LEFT KIDNEY IS NOTED. [facility]: [id number] [facility]
== END 2019-01-27 15:17 | disposition home or self-care (01) ==
LOC: ER 12:10
DX: N13.2 Hydronephrosis with renal and ureteral calculous obstruction (principal); K59.00 Constipation, unspecified; R11.0 Nausea
CPT/HCPCS: 74018; 76775; 96361; 96365; 96375; 99284; J1885; J2550; J7030